=== PATIENT | male | born 1945 | race Caucasian/White ===

== ENCOUNTER 2017-03-26 09:47 | Emergency (ER) | payer MEDICARE, OTHER ==
[~2017-03-26] VITALS: Ht 185.4 cm; Wt 147.0 kg
[~2017-03-26 09:47] MED LIST: CARD180C5 PO; COUM10TA PO; COUM5TAB PO; COZA100T PO; FINA5TAB2 PO; GLIM4 PO; METF-324 PO; PACE200T4 PO; PRAV40TA PO
[2017-03-26 09:57] VITALS: BP 191/90; PULSE 60; RESP 20; TEMP 97.8; O2SAT 95
--- NOTE | 2017-03-26 11:47 | PD ---
HPI Chief Complaint: Pain: Acute or Chronic Time Seen by Provider: 11:47 Travel History International Travel<30 days: No Contact w/Intl Traveler<30days: No Traveled to known affect area: No History of Present Illness HPI 71-year-old male with history of hypertension, diabetes, A. fib anticoagulated on Coumadin presents to the emergency department for evaluation of pain radiating from left buttock down left leg. States this is been going on for 1 week. Denies any injury or trauma. States that he has had cramping in the left calf as well. States that he was seen by his primary care Dr. Jordan in office last week and they did an MRI as an outpatient which showed lumbar spine disc bulging. States he was given an IM injection in the office for pain and discharged with Lortab, prednisone and Valium. States he has been taking his medications without improvement of symptoms. States that he still has severe pain radiating from the left buttock down the left leg. Denies any alleviating factors. Aggravated with movement. Denies any fever, chills, nausea, vomiting, bowel or bladder dysfunction, saddle anesthesia. The patient and his are essentially here because they're concerned about his left calf pain and wanted make sure he does not have a blood clot and also because of his uncontrolled pain. No other complaints. PFSH Past Medical History Hx Anticoagulant Therapy: Yes (ON COUMADIN) Atrial Fibrillation: Yes (CORRECTED BY CARDOVERSON) Blood Disorders: No Heart Rhythm Problems: Yes (ATRIAL FIB) Cancer: Yes (SKIN CANCER ON L EAR) Cardiovascular Problems: Yes (IRREGULAR RYTHM) High Cholesterol: Yes Congestive Heart Failure: Yes Diabetes: Yes (IDDM) Patient Takes Glucophage: Yes Diminished Hearing: No Endocrine: Yes Gastrointestinal Disorders: No Genitourinary: Yes Hepatitis: No Hiatal Hernia: No Hypertension: Yes Immune Disorder: No Implanted Vascular Access Dvce: No Kidney Stones: Yes (1999) Medical other: Yes (BELLS PALSEY--LT SIDE OF FACE,BULDGING DISC NECK) Musculoskeletal: Yes Neurologic: Yes (BELLS PALSEY) Psychiatric: No Respiratory: No Thyroid Disease: No ?: Not Past Surgical History Abdominal Surgery: No Cardiac Surgery: Yes (CARDIOVERSION) Ear Surgery: No Endocrine Surgery: No Eye Surgery: No Genitourinary Surgery: No Gynecologic Surgery: No Neurologic Surgery: No Oral Surgery: Yes (T&A) Pacemaker: No Thoracic Surgery: No Tonsillectomy: Yes (5 AND ADS) Other Surgery: Yes Social History Alcohol Use: Yes (OCCAS. MIX DRINKS, BEER) Tobacco Use: No (QUIT 10/24/15) Substance Use: No Allergies-Medications (Allergen,Severity, Reaction): Coded Allergies: Atropine (Verified Allergy, Intermediate, 03/26/17) Uncoded Allergies: ANTIHISTAMINES (Allergy, Intermediate, 05/18/06) Reported Meds & Prescriptions Reported Meds & Active Scripts Active Percocet (Oxycodone-Acetaminophen) 10-325 mg Tab 1 Tab PO Q6H PRN Finasteride 5 Mg Tab 5 Mg PO DAILY Do not crush. Reported Finasteride 5 Mg Tab 5 Mg PO DAILY Do not crush. Glimepiride 4 Mg Tab 4 Mg PO BIDAC Valium (Diazepam) 5 Mg Tab 5 Mg PO BID PRN Valium (Diazepam) 5 Mg Tab 5 Mg PO BID PRN Hydrocodone-Acetaminophen 10-325 mg Tab 1 Tab PO Q4H PRN Pravastatin 40 Mg Tab 40 Mg PO DAILY Warfarin 10 Mg Tab 10 Mg PO DAILY Metformin (Metformin HCl) 1,000 Mg Tab 1,000 Mg PO BIDPC With meals Potassium Citrate ER 15 Meq Tab 10 Meq TID Amiodarone (Amiodarone HCl) 200 Mg Tab 200 Mg PO DAILY Cartia Xt (Diltiazem ER 24 HR) 120 Mg Caper 180 Mg PO DAILY Review of Systems Except as stated in HPI: all other systems reviewed are Neg Physical Exam Narrative GENERAL: Well-nourished and well-developed pleasant male patient in no acute distress but moderate amount of pain. SKIN: Warm and dry. HEAD: Normocephalic and atraumatic. EYES: No injection, drainage, or hyphema noted. PERRLA. EOMI. ENT: No nasal drainage noted. Oropharynx is clear. NECK: Supple and the trachea is midline. CARDIOVASCULAR: Regular rate and rhythm. RESPIRATORY: Breath sounds are equal bilaterally with no accessory muscle use, wheezing, rhonchi, or crackles. GASTROINTESTINAL: Abdomen is soft, non-tender, and nondistended. MUSCULOSKELETAL: No obvious deformities, swelling, cyanosis, or ecchymosis is present throughout the upper and lower extremities. Patient has full range of motion without any signs of neurovascular compromise. Mild tenderness to palpation over left buttock, left hamstring and posterior aspect of left knee. Strength 5/5 upper and lower extremities and equal bilaterally. The pulses are 2+ bilaterally. Sensation is intact. BACK: Nontender without any obvious deformities, bony point tenderness, or crepitus noted throughout the thoracic and lumbar vertebrae. NEUROLOGICAL: Awake, alert, and oriented. Normal speech and gait. Cranial nerves are grossly intact. Data Data Last Documented VS Vital Signs Date Time Temp Pulse Resp B/P Pulse Ox O2 Delivery O2 Flow Rate FiO2 03/26/17 13:24 52 18 157/79 95 Room Air 03/26/17 09:57 97.8 Orders Basic Metabolic Panel (Bmp) (03/26/17 11:46) Complete Blood Count With Diff (03/26/17 11:46) Prothrombin Time / Inr (Pt) (03/26/17 11:46) Act Partial Throm Time (Ptt) (03/26/17 11:46) Iv Access Insert/Monitor (03/26/17 11:46) Ecg Monitoring (03/26/17 11:46) Oximetry (03/26/17 11:46) Ondansetron Inj (Zofran Inj) (03/26/17 12:00) Sodium Chloride 0.9% Flush (Ns Flush) (03/26/17 12:00) Hydromorphone Pf Inj (Dilaudid Pf Inj) (03/26/17 12:00) Us Leg Venous Doppler (03/26/17 ) Labs Laboratory Tests Test 03/26/17 12:45 White Blood Count 16.1 TH/MM3 Red Blood Count 5.09 MIL/MM3 Hemoglobin 14.7 GM/DL Hematocrit 45.4 % Mean Corpuscular Volume 89.2 FL Mean Corpuscular Hemoglobin 28.8 PG Mean Corpuscular Hemoglobin 32.3 % Concent Red Cell Distribution Width 14.9 % Platelet Count 315 TH/MM3 Mean Platelet Volume 9.3 FL Neutrophils (%) (Auto) 76.5 % Lymphocytes (%) (Auto) 16.2 % Monocytes (%) (Auto) 6.3 % Eosinophils (%) (Auto) 0.4 % Basophils (%) (Auto) 0.6 % Neutrophils # (Auto) 12.3 TH/MM3 Lymphocytes # (Auto) 2.6 TH/MM3 Monocytes # (Auto) 1.0 TH/MM3 Eosinophils # (Auto) 0.1 TH/MM3 Basophils # (Auto) 0.1 TH/MM3 CBC Comment AUTO DIFF Differential Total Cells 100 Counted Neutrophils % (Manual) 75 % Lymphocytes % 15 % Monocytes % 6 % Eosinophils % 1 % Neutrophils # (Manual) 12.6 TH/MM3 Metamyelocytes 1 % Myelocytes 1 % Promyelocytes 1 % Differential Comment FINAL DIFF MANUAL Toxic Vacuolation PRESENT Platelet Estimate NORMAL Platelet Morphology Comment NORMAL Prothrombin Time 39.0 SEC Prothromb Time International 3.3 RATIO Ratio Activated Partial 38.7 SEC Thromboplast Time Sodium Level 137 MEQ/L Potassium Level 4.7 MEQ/L Chloride Level 100 MEQ/L Carbon Dioxide Level 27.5 MEQ/L Anion Gap 10 MEQ/L Blood Urea Nitrogen 19 MG/DL Creatinine 0.93 MG/DL Estimat Glomerular Filtration 80 ML/MIN Rate Random Glucose 185 MG/DL Calcium Level 8.8 MG/DL MDM Medical Decision Making Medical Screen Exam Complete: Yes Emergency Medical Condition: Yes Differential Diagnosis Sciatica versus lumbar radiculopathy versus DVT versus intractable pain Narrative Course 71-year-old male is brought to the emergency department for evaluation of pain radiating from left buttock down left leg. Patient is afebrile, vital signs are stable. His symptoms are consistent with sciatica however the patient and his are concerned about possibility of DVT as he said cramping in the left calf. We'll do an ultrasound. We'll also do blood work and check his INR. Patient is administered Dilaudid 1 mg IV and Zofran 4 mg IV. He had an MRI done at [facility] 6 days ago which showed mild almost moderate stenosis at the L4-5 level secondary to diffuse annular bulge and posterior element hypertrophy. The lateral recesses are clearly impaired. There is a broad-based bulge and slight inferior extrusion of disc material on the left side which abuts but does not displace the left L5 nerve root. The patient and his state that he was referred to a neurosurgeon however the nurse surgeon wants him to undergo physical therapy and pain management before he will evaluate him and his appointment is not for another month. CBC shows leukocytosis with a white count of 16.1, likely secondary to steroids. BMP is unremarkable. INR is 3.3, therapeutic. Ultrasound of the left leg is negative for DVT. She was reassessed after receiving 1 dose of Dilaudid and reports his pain has resolved. Discussed all labs and imaging results with patient and his . We 'll try a course of Percocet rather than Lortab for pain control. Patient advised outpatient follow-up with PCP and pain management. Patient and family are comfortable with this plan. Diagnosis Primary Impression: Sciatica of left side Referrals: Primary Care Physician Patient Instructions: General Instructions, Sciatica (ED) Additional Instructions: Do not take Percocet and Lortab simultaneously. Try taking Percocet over the next few days instead of the Lortab for pain control. Do not drink alcohol or drive while taking medications. Be careful taking Percocet with other medications such as Valium as it will make you very drowsy and at risk for losing balance and falling. Follow-up with your Primary Care Physician. Return to the ED for any acute worsening of symptoms. Med/Other Pt SpecificInfo: Prescription(s) given Scripts Oxycodone-Acetaminophen (Percocet)10-325 mg Tab1 Tab PO Q6H PRN (PAIN GREATER THAN 6) #20 TAB Ref 0 Prov:Jeevan Roberson MD 03/26/17 Disposition: 01 DISCHARGE HOME Condition: Stable Madeline Nichole Mar 26, 2017 11:47
[2017-03-26] MEDS ORDERED: HYDROmorphone HCL PF 1 MG/ML VIAL IVS ONE (12:00)
[2017-03-26] MEDS ORDERED: SODIUM CHLORIDE 0.9% FLUSH 10 ML FLUSH IV FLUSH PRN (12:00)
[2017-03-26] MEDS ORDERED: ONDANSETRON HCL 4 MG/2 ML VIAL IVP ONE (12:00)
[2017-03-26] MEDS ORDERED: METF1000 PO (12:09)
[2017-03-26] MEDS ORDERED: CART120C PO (12:09)
[2017-03-26] MEDS ORDERED: AMIO200T PO (12:09)
[2017-03-26] MEDS ORDERED: DIAZ5 PO ×2 (12:09→12:10)
[2017-03-26] MEDS ORDERED: HYDR-3583 PO (12:09)
[2017-03-26] MEDS ORDERED: PRAV40TA2 PO (12:09)
[2017-03-26] MEDS ORDERED: POTA4.25 (12:09)
[2017-03-26] MEDS ORDERED: WARF-22 PO (12:09)
[2017-03-26] MEDS ORDERED: FINA5TAB2 PO (12:10)
[2017-03-26] MEDS ORDERED: GLIM4TAB PO (12:10)
[2017-03-26 12:54] LABS: AUTOMATED NEUTROPHIL # 12.3 TH/MM3 (1.8-7.7); BASOPHIL # 0.1 TH/MM3 (0-0.2); BASOPHIL % 0.6 % (0.0-2.0); EOSINOPHIL # 0.1 TH/MM3 (0-0.4); EOSINOPHIL % 0.4 % (0.0-4.0); HEMATOCRIT 45.4 % (39.0-51.0); LYMPH % 16.2 % (9.0-44.0); LYMPHOCYTE # 2.6 TH/MM3 (1.0-4.8); MEAN CELL VOLUME 89.2 FL (80.0-100.0); MEAN CORPUSCULAR HEMOGLOBIN 28.8 PG (27.0-34.0); MEAN CORPUSCULAR HGB CONC 32.3 % (32.0-36.0); MONO % 6.3 % (0.0-8.0); NEUT % 76.5 % (16.0-70.0); PLATELET COUNT 315 TH/MM3 (150-450); RED BLOOD COUNT 5.09 MIL/MM3 (4.50-5.90); RED CELL DISTRIBUTION WIDTH 14.9 % (11.6-17.2); WHITE BLOOD COUNT 16.1 TH/MM3 (4.0-11.0)
[2017-03-26 13:00] LABS: HEMO FLAGS AUTO DIFF
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
[2017-03-26 13:08] LABS: APTT (PATIENT) 38.7 SEC (24.3-30.1); INTERNATIONAL NORMALIZED RATIO 3.3 RATIO
[2017-03-26 13:24] VITALS: BP 157/79; PULSE 52; RESP 18; O2SAT 95
[2017-03-26 13:35] LABS: EOSINOPHILS 1 % (0-4); METAMYELOCYTES 1 % (0-1); MYELOCYTES 1 % (0-0); NEUTROPHIL # MANUAL DIFF 12.6 TH/MM3 (1.8-7.7); POLYS (SEG NEUTROPHILS) 75 % (16-70); PROMYELOCYTES 1 % (0-0); WBC DIFF SAMPLE 100
[2017-03-26 13:36] LABS: PLATELET ESTIMATE SMEAR NORMAL (NORMAL); PLATELET MORPHOLOGY NORMAL (NORMAL); SCAN/DIFF FINAL DIFF MANUAL
[2017-03-26 13:37] LABS: TOXIC VACUOLATION PRESENT (NONE SEEN)
[2017-03-26] MEDS ORDERED: PERC10TA27 PO (13:37)
[2017-03-26 13:49] LABS: BICARBONATE 27.5 MEQ/L (21.0-32.0); POTASSIUM 4.7 MEQ/L (3.5-5.1)
== END 2017-03-26 14:30 | disposition home or self-care (01) ==
LOC: NEPD 09:47
DX: M54.32 Sciatica, left side (principal); D72.829 Elevated white blood cell count, unspecified; I10 Essential (primary) hypertension; E11.9 Type 2 diabetes mellitus without complications; I48.91 Unspecified atrial fibrillation; I50.9 Heart failure, unspecified; Z79.899 Other long term (current) drug therapy; Z79.01 Long term (current) use of anticoagulants; Z88.8 Allergy status to other drugs, medicaments and biological substances
CPT/HCPCS: 80048; 85007; 85027; 85610; 85730; 93971; 96374; 96375; 99285; J1170; J2405

== ENCOUNTER 2017-05-25 12:42 | Emergency (ER) | payer MEDICARE ==
[~2017-05-25] VITALS: Ht 185.4 cm; Wt 138.0 kg
[~2017-05-25 12:42] MED LIST changes: +AMIO200T PO; -CARD180C5 PO; +CART120C PO; -COUM10TA PO; -COUM5TAB PO; -COZA100T PO; +DIAZ5 PO; -GLIM4 PO; +GLIM4TAB PO; +HYDR-3583 PO; -METF-324 PO; +METF1000 PO; -PACE200T4 PO; +PERC10TA27 PO; +POTA4.25 PO; -PRAV40TA PO; +PRAV40TA2 PO; +WARF-22 PO
[2017-05-25 14:21] VITALS: BP 179/85; PULSE 64; RESP 20; TEMP 97.5; O2SAT 93
[2017-05-25 16:55] VITALS: BP 173/81; PULSE 61; RESP 18; TEMP 97.6; O2SAT 96
[2017-05-25 17:29] VITALS: BP 173/66; PULSE 64; RESP 20; O2SAT 97
[2017-05-25] MEDS ORDERED: LOSA100T PO (17:29)
[2017-05-25] MEDS ORDERED: WARF-21 PO (17:29)
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
[2017-05-25] MEDS ORDERED: DEXAMETHASONE SOD PHOS 20 MG/5 ML VIAL IM ONE (17:45)
[2017-05-25] MEDS ORDERED: HYDROmorphone HCL PF 1 MG/ML VIAL IM ONE ×2 (17:45→18:30)
[2017-05-25] MEDS ORDERED: HYDROmorphone HCL PF 1 MG/ML VIAL IV PUSH ONE (18:15)
[2017-05-25 18:21] VITALS: BP 152/59; PULSE 57; RESP 20; O2SAT 98
[2017-05-25] MEDS ORDERED: PRED50 PO (18:40)
[2017-05-25 18:57] VITALS: BP 142/61
--- NOTE | 2017-05-26 14:04 | EKG ---
Date Performed: 05/25/2017 Time Performed: 13:00:59 PTAGE: 71 years EKG: Sinus rhythm NORMAL ECG Compared to prior tracing no significant change PREVIOUS TRACING : 07/18/13 DOCTOR: Faby Wood Interpretating Date/Time 05/26/2017 13:58:23
[2017-05-28] MEDS ORDERED: DIAZ5TAB PO (14:31)
[2017-05-28] MEDS ORDERED: METF500T PO (14:31)
[2017-05-28] MEDS ORDERED: WARF-23 PO (14:31)
[2017-05-28] MEDS ORDERED: OXYC1TAB36 PO (14:31)
[2017-05-28] MEDS ORDERED: INSU1INJ14 SQ (14:31)
[2017-05-28] MEDS ORDERED: HYDR-3583 PO (14:31)
[2017-05-28] MEDS ORDERED: ALBI1INJ SQ (14:32)
[2017-06-01] MEDS ORDERED: WARF-60 PO (16:46)
== END 2017-05-25 19:00 | disposition home or self-care (01) ==
LOC: PHED 12:42
DX: M54.42 Lumbago with sciatica, left side (principal); I10 Essential (primary) hypertension; I48.91 Unspecified atrial fibrillation; Z79.01 Long term (current) use of anticoagulants
CPT/HCPCS: 93005; 96372; 99284; J1100; J1170

== ENCOUNTER → 2017-06-01 | Outpatient (CLI) | payer MEDICARE ==
[~2017-06-01] MED LIST changes: +ALBI1INJ SQ; -DIAZ5 PO; +DIAZ5TAB PO; +INSU1INJ14 SQ; +LOSA100T PO; -METF1000 PO; +METF500T PO; +OXYC1TAB36 PO; -PERC10TA27 PO; -WARF-22 PO; +WARF-23 PO; +WARF-60 PO
== END ==
LOC: CPRE 11:56
PROVIDERS: ATTEND Neurological Surgery
DX: M51.26 Other intervertebral disc displacement, lumbar region (principal); M48.06 Spinal stenosis, lumbar region; M51.35 Other intervertebral disc degeneration, thoracolumbar region

== ENCOUNTER 2017-06-09 05:58 | Observation (INO) | payer MEDICARE ==
[~2017-06-09] VITALS: Ht 185.4 cm; Wt 133.7 kg
[~2017-06-09 05:58] MED LIST changes: -DIAZ5TAB PO
[2017-06-09] MEDS ORDERED: POVIDONE IODINE 5% (ANTISEPSIS KIT) 4 APPLICATIONS EACH NARE PRN (06:45)
[2017-06-09] MEDS ORDERED: METOPROLOL TARTRATE 25 MG TAB PO PRN (06:45)
[2017-06-09] MEDS ORDERED: SODIUM CHLOR 0.9% 1000 ML INJ 1,000 ML IV SCH (06:45)
[2017-06-09] MEDS ORDERED: VANCOMYCIN 1,000 MG/NS 250 ML IV SCH ×2 (06:45)
[2017-06-09] MEDS ORDERED: LACTATED RINGER'S 1000 ML IV PRN (06:45)
[2017-06-09] MEDS ORDERED: SODIUM CHLORID 0.9% 500 ML IV PRN (06:45)
[2017-06-09] MEDS ORDERED: CHLORHEXIDINE GLUCONATE 2 % 1 PACK (2 CLOTHS) TOPICAL PRN (06:45)
[2017-06-09] MEDS ORDERED: BUPIVACAINE/EPINEPHRINE 0.5% 50 ML VIAL ONE (06:49)
[2017-06-09] MEDS ORDERED: THROMBIN (TOPICAL) 5,000 UNIT VIAL ONE (06:49)
[2017-06-09] MEDS ORDERED: VANCOMYCIN HCL 1000 MG VIAL ONE (06:49)
[2017-06-09] MEDS ORDERED: GELFOAM SIZE 100 ONE (06:50)
[2017-06-09] MEDS ORDERED: DEXTROSE 50% IN WATER 50 ML SYRINGE ONE ×2 (07:12→11:38)
[2017-06-09] MEDS ORDERED: DEXTROSE 50% IN WATER 50 ML VIAL(D50) ONE (07:12)
[2017-06-09] MEDS ORDERED: DEXTROSE 50% IN WATER 50 ML VIAL(D50) IV ONE (07:45)
[2017-06-09] MEDS ORDERED: methylPREDNISolone ACETATE 40 MG/ML VIAL ONE (09:32)
[2017-06-09] MEDS ORDERED: DO NOT ADM ANY ANTICOAGULANT DRUGS PRN (10:56)
[2017-06-09] MEDS: LACTATED RINGER'S 1000 ML INJ 1,000 ML IV SCH (11:00)
[2017-06-09] MEDS ORDERED: OXYC1TAB36 PO (11:10)
--- NOTE | 2017-06-09 11:11 | RADRPT ---
EXAM DATE/TIME: 06/09/2017 08:52 [facility] COMPARISON: No previous studies available for comparison. INDICATIONS : L4-L5 lumbar laminectomy. MEDICAL HISTORY : None. SURGICAL HISTORY : None. ENCOUNTER: Initial ACUITY: 1 day PAIN SCORE: Non-responsive. LOCATION: Lumbar spine. FINDINGS: Single lateral view of the lumbosacral junction demonstrates localization hardware projecting posteri or to L4 and L5 posterior elements. CONCLUSION: Localization as above. Oleg Pa MD on June 09, 2017 at 11:09 Board Certified Radiologist. This report was verified electronically.
--- NOTE | 2017-06-09 11:12 | PD.OP ---
cc: Roosevlet Jordan MD, Vinod, MD Operative Report Date of Surgery: Jun 09, 2017 Preoperative Diagnosis: Low back pain with intractable radiculopathy; lumbar L4-5 spinal stenosis from facet and ligamentum flavum hypertrophy along with herniated disc; postlaminectomy syndrome; morbid obesity Postoperative Diagnosis: Same Procedure: Lumbar L4-5 decompressive laminectomy with microdiscectomy; microsurgical technique; technically challenging surgery due to patient's morbid obesity and epidural scar tissue from previous surgery Anesthesia: Gen. endotracheal by Arron Grewal Surgeon: Kayode Bonner M.D. Bar Hostess(s): Julissa Kapadia Operation and Findings: Following administration of general endotracheal anesthesia, patient received vancomycin 1 g intravenously. Sequential compression devices were placed for DVT prophylaxis. He was then turned in prone position on Rikki frame and the Wagner table and all pressure points adequately padded. The lumbar region was then shaved and prepped with a Betadine and ChloraPrep. Sterile draping undertaken with Ioban. Midline incision overlying the L4-5 level incorporating the superior aspect of the previous incision site was then made after infiltrating the skin with 0.5% Marcaine with epinephrine solution. The skin incision was made extending down through the fascia and then using the subperiosteal plane on the left side the muscular attachments to the spinous process and lamina were detached. Intraoperative fluoroscopy was used for level confirmation and further dissection undertaken using microtechnique with microscope magnification. This was a very deep exposure given the patient's morbid obesity and somewhat challenging given the obesity and previous laminectomy and scar tissue. The inferior portion of the L4 and portion of the residual L5 lamina was then drilled out and the underlying ligamentum flavum also removed. There was facet arthropathy noted and the medial portion of facet was also resected and the lateral recess decompressed. There was epidural scar tissue from the previous surgery. Epidural venous stasis which he with the bipolar cautery along with Gelfoam and thrombin and bone wax used at the laminotomy edges for hemostasis. The thecal sac was then gently retracted with a nerve root retractor and an extruded disc fragment was identified which was inferiorly migrated. Fragments were removed with pituitary forceps and the nerve root impingement along with thecal sac compression decompressed. The spinal canal was well decompressed at this point. The area was then copiously irrigated with vancomycin solution. The retractors removed and the muscle fascia proximal using 2-0 Vicryl interrupted stitches. 3-0 Vicryl subcuticular stitches were also placed in an interrupted fashion and planned skin closure was with radhika. A sterile dressing was then applied and the patient then turned in the supine position and extubated and taken to recovery room in stable condition. There were no intraoperative complications and all sponge and needle count was correct at the end of the procedure. Estimated blood loss less than 50 cc. Kayode Bonner MD Jun 09, 2017 11:12
[2017-06-09] MEDS ORDERED: *morphine SULFATE 8 MG/ML PERIprocedure ONLY ONE ×3 (11:16→11:47)
[2017-06-09] MEDS ORDERED: LIDOCAINE HCL 1% PF 5 ML AMPULE OTHER ONE (12:00)
[2017-06-09] MEDS ORDERED: NEOSTIGMINE 3 MG/3 ML SYR IV ONE (12:00)
[2017-06-09] MEDS ORDERED: PROPOFOL 200 MG/20 ML AMP IV ONE (12:00)
[2017-06-09] MEDS ORDERED: ROCURONIUM INJ 50 MG/5 ML SYRINGE IV PUSH ONE (12:00)
[2017-06-09] MEDS ORDERED: GLYCOPYRROLATE 1 MG/5 ML SYRINGE IV PUSH ONE (12:00)
[2017-06-09] MEDS ORDERED: ePHEDrine/NS 25 MG/5 ML SYR IV ONE (12:00)
[2017-06-09] MEDS ORDERED: DEXAMETHASONE SOD PHOS 4 MG/ML VIAL IV ONE (12:00)
[2017-06-09] MEDS ORDERED: MIDAZOLAM HCL 2 MG/2 ML VIAL IV ONE (12:00)
[2017-06-09] MEDS ORDERED: ONDANSETRON HCL 4 MG/2 ML VIAL IV PUSH ONE (12:00)
[2017-06-09] MEDS ORDERED: PHENYLEPH/NS 1000 MCG/10 ML SYR IV ONE (12:00)
[2017-06-09] MEDS ORDERED: MORPHINE SULFATE 4 MG/ML INJ IV ONE (12:00)
[2017-06-09] MEDS ORDERED: DEXTROSE 50% IN WATER 50 ML SYRINGE IV ONE ×2 (13:00→13:15)
[2017-06-09] MEDS ORDERED: *RESP: ALBUTEROL 2.5 MG/3 ML NEB (PRN) PERIprocedural Use ONLY NEB ONE (13:05)
[2017-06-09] MEDS ORDERED: ONDANSETRON HCL 4 MG/2 ML VIAL ONE (14:07)
[2017-06-09] MEDS ORDERED: ACETAMINOPHEN/HYDROcodone 325 MG/10 MG TAB PO PRN ×2 (14:45)
[2017-06-09] MEDS ORDERED: MORPHINE SULFATE 4 MG/ML INJ IV PUSH PRN (14:45)
[2017-06-09] MEDS ORDERED: ACETAMINOPHEN 325 MG TAB PO PRN (14:45)
[2017-06-09] MEDS ORDERED: ONDANSETRON HCL 4 MG/2 ML VIAL IV PUSH PRN (14:45)
[2017-06-09] MEDS ORDERED: cloNIDine HCL 0.1 MG TAB PO PRN ×2 (14:45→20:30)
[2017-06-09] MEDS ORDERED: PROMETHAZINE INJ 25 MG/ML VIAL IM PRN (14:45)
[2017-06-09] MEDS ORDERED: RESP: ALBUTEROL 2.5 MG/3 ML NEB (PRN) NEB (14:45)
[2017-06-09] MEDS ORDERED: ALUMINUM/MAGNESIUM/SIMETH 30 ML CUP PO PRN (14:45)
[2017-06-09] MEDS ORDERED: DEXTROSE 50% IN WATER 50 ML VIAL(D50) IV PUSH PRN (14:45)
[2017-06-09] MEDS ORDERED: MAGNESIUM SULFATE INJ 2 GM in SODIUM CHLORIDE 0.9% INJ 100 ML IV PRN (14:45)
[2017-06-09] MEDS ORDERED: SODIUM CHLORIDE 0.9% FLUSH 10 ML FLUSH IV FLUSH PRN (14:45)
[2017-06-09] MEDS ORDERED: POTASSIUM CHLOR 20 MEQ PREMIX 100 ML IV PRN (14:45)
[2017-06-09] MEDS ORDERED: CALCIUM GLUCONATE INJ 1 GM in SODIUM CHLORIDE 0.9% INJ 100 ML IV PRN (14:45)
[2017-06-09] MEDS ORDERED: MENTHOL LOZENGE BUCCAL PRN (14:45)
[2017-06-09] MEDS ORDERED: GLUCAGON 1 MG/ML VIAL OTHER PRN (14:45)
[2017-06-09] MEDS ORDERED: CYCLOBENZAPRINE HCL 10 MG TAB PO PRN (14:45)
[2017-06-09] MEDS ORDERED: MAGNESIUM HYDROXIDE SUSP 30 ML CUP PO PRN (14:45)
--- NOTE | 2017-06-09 15:26 | RADRPT ---
EXAM DATE/TIME: 06/09/2017 15:06 [facility] COMPARISON: SPINE LUMBAR LATERAL ONLY, June 09, 2017, 8:52. INDICATIONS : Dyspnea. MEDICAL HISTORY : Congestive heart failure. Hypercholesterolemia. Ruptured disc in neck. [place] SURGICAL HISTORY : Tonsillectomy. Adnoidecotomy. ENCOUNTER: Initial ACUITY: 1 day PAIN SCORE: Non-responsive. LOCATION: Bilateral chest FINDINGS: The heart is enlarged. The lungs demonstrate some chronic appearing interstitial changes but are othe rwise clear. The visualized bony structures are grossly intact. CONCLUSION: 1. Cardiomegaly. No acute cardiopulmonary findings. Efren Rios MD on June 09, 2017 at 15:20 Board Certified Radiologist. This report was verified electronically.
[2017-06-09 16:52] VITALS: BP 169/80; PULSE 57; RESP 18; TEMP 97.5; O2SAT 98
[2017-06-09] MEDS: INSULIN NovoLIN REGULAR SUPPLEMENTAL SCALE SQ SCH ×2 (17:00→22:56)
[2017-06-09 17:10] LABS: AUTOMATED NEUTROPHIL # 17.2 TH/MM3 (1.8-7.7); BASOPHIL % 0.1 % (0.0-2.0); HEMATOCRIT 38.3 % (39.0-51.0); HEMO FLAGS DIFF FINAL; LYMPH % 3.7 % (9.0-44.0); LYMPHOCYTE # 0.7 TH/MM3 (1.0-4.8); MEAN CELL VOLUME 91.6 FL (80.0-100.0); MEAN CORPUSCULAR HEMOGLOBIN 30.2 PG (27.0-34.0); MEAN CORPUSCULAR HGB CONC 32.9 % (32.0-36.0); MONO % 1.4 % (0.0-8.0); NEUT % 94.8 % (16.0-70.0); PLATELET COUNT 281 TH/MM3 (150-450); RED BLOOD COUNT 4.18 MIL/MM3 (4.50-5.90); RED CELL DISTRIBUTION WIDTH 14.4 % (11.6-17.2); WHITE BLOOD COUNT 18.2 TH/MM3 (4.0-11.0)
--- NOTE | 2017-06-09 17:16 | HHI.NSPN ---
History Interval History 71-year-old gentleman morbidly obese with the medical comorbidities who underwent L4-5 decompressive laminectomy with microdiscectomy this morning. He is doing well from that standpoint although noticed the saturation on room air and with the 2 L nasal cannula nasal reduction aiding in his mid 90s. He denies any dyspnea or chest pain although it is little lethargic from the anesthetics. Exam Results Vital Signs Date Time Temp Pulse Resp B/P (MAP) Pulse Ox O2 Delivery O2 Flow Rate FiO2 06/09/17 16:52 97.5 57 18 169/80 (109) 98 06/09/17 15:30 Nasal Cannula 3 Intake and Output 06/09/17 06/09/17 06/10/17 08:00 16:00 00:00 Intake Total 1475 ml Output Total 50 ml Balance 1425 ml Physical Examination Easily arousable and follows commands and verbalizes Moves all extremities Lumbar incision site clean and dry with no drainage Chest clear to auscultation bilaterally Heart regular rate and rhythm Lab, Micro, Other Results Last Impressions Lumbar Spine X-Ray 06/09/17 0000 Signed Impressions: Service Date/Time: Friday, June 09, 2017 08:52 - CONCLUSION: Localization as above. Oleg Pa MD Chest X-Ray 06/09/17 0000 Signed Impressions: Service Date/Time: Friday, June 09, 2017 15:06 - CONCLUSION: 1. Cardiomegaly. No acute cardiopulmonary findings. Efren Rios MD Laboratory Tests Test 06/09/17 16:38 White Blood Count 18.2 Red Blood Count 4.18 Hemoglobin 12.6 Hematocrit 38.3 Mean Corpuscular Volume 91.6 Mean Corpuscular Hemoglobin 30.2 Mean Corpuscular Hemoglobin Concent 32.9 Red Cell Distribution Width 14.4 Platelet Count 281 Mean Platelet Volume 8.4 Neutrophils (%) (Auto) 94.8 Lymphocytes (%) (Auto) 3.7 Monocytes (%) (Auto) 1.4 Eosinophils (%) (Auto) 0.0 Basophils (%) (Auto) 0.1 Neutrophils # (Auto) 17.2 Lymphocytes # (Auto) 0.7 Monocytes # (Auto) 0.3 Eosinophils # (Auto) 0.0 Basophils # (Auto) 0.0 CBC Comment DIFF FINAL Differential Comment Medical Decision Making Impression and Plan 71-year-old status post L4-5 laminectomy with microsurgical discectomy for stenosis and intractable back pain with radiculopathy. Chest x-ray is clear and with 3 L nasal cannula oxygen his saturations are normal. Accordingly we will admit him for observation and wean his oxygenation as tolerated. He will placed on insulin sliding scale coverage given that he had hyperglycemia which required rescheduling surgery. We'll also consult the medical team for assistance in his medical management. Discussed with his . Kayode Bonner MD Jun 09, 2017 17:16
[2017-06-09 17:31] LABS: BICARBONATE 24.7 MEQ/L (21.0-32.0); POTASSIUM 4.5 MEQ/L (3.5-5.1)
[2017-06-09 20:00] VITALS: BP 161/56; PULSE 67; RESP 20; TEMP 97.6; O2SAT 98
[2017-06-09] MEDS ORDERED: RESP: ALBUTEROL 2.5 MG/IPRATROPIUM 0.5 MG NEB (PRN) NEB (20:30)
--- NOTE | 2017-06-09 20:36 | PD.CONS ---
History of Present Illness Service [facility] adult medicine service Consult Requested By Dr. Mis Bonner Reason for Consult Medical management and reported postop hypoxia Primary Care Physician Roosevelt Jordan MD Diagnoses: History of Present Illness We have been asked to see this 71-year-old obese male with hypertension and diabetes who underwent L4-5 laminectomy with microdiscectomy earlier today for some reported postop hypoxia and management of multiple medical problems. Patient has remained relatively stable but was noted earlier today after surgery that his O2 saturation on room air was in the low 90s. He is now on 2-1 /2 L of supplemental oxygen via nasal cannula and sat is 99-100%. Patient denies any chest pain or shortness of breath. He does note that he is still quite fatigued after his surgery and only got about 4 hours of sleep last night in anticipation of surgery. He says that he had a dry cough a few days prior to the surgery but specifically denied any phlegm or sputum production. Denied any hemoptysis. No fevers or chills. No increased swelling in his legs or orthopnea. She states now it actually feels better than when he came in his pain in his back is less. Again denies shortness of breath. Review of Systems Constitutional: COMPLAINS OF: Fatigue Eyes: DENIES: Blurred vision, Diplopia, Eye inflammation, Eye pain, Vision loss , Photosensitivity, Double Vision Ears, nose, mouth, throat: DENIES: Tinnitus, Hearing loss, Vertigo, Nasal discharge, Oral lesions, Throat pain, Hoarseness, Ear Pain, Running Nose, Epistaxis, Sinus Pain, Toothache, Odynophagia Respiratory: COMPLAINS OF: Cough, DENIES: Apneas, Snoring, Wheezing, Hemoptysis , Sputum production, Shortness of breath Cardiovascular: DENIES: Chest pain, Palpitations, Syncope, Dyspnea on Exertion , PND, Lower Extremity Edema, Orthopnea, Claudication Gastrointestinal: DENIES: Abdominal pain, Black stools, Bloody stools, Constipation, Diarrhea, Nausea, Vomiting, Difficulty Swallowing, Anorexia Musculoskeletal: COMPLAINS OF: Joint pain, Back pain Hematologic/lymphatic: COMPLAINS OF: Bruising Psychiatric: COMPLAINS OF: Anxiety Past Family Social History Allergies: Coded Allergies: atropine (Unverified Allergy, Intermediate, 06/09/17) Uncoded Allergies: ANTIHISTAMINES (Allergy, Intermediate, 05/18/06) Past Medical History Hypertension Type 2 diabetes Osteoarthritis Degenerative disc disease Obesity Atrial fibrillation Hyperlipidemia Past Surgical History Tonsillectomy and adenoidectomy in the distant past Prior lumbar discectomy approximately 20 years ago Kidney stone retrieval and extraction Knee arthroscopy Reported Medications Med reconciliation list reviewed. Patient reports he is up-to-date. Family History Noncontributory Social History Patient never smoked cigarettes but did smoke occasional cigars in the past. He states that he did not smoke cigars regularly but possibly 1-2 cigars every 3 months. Not smoked at all in the last month. 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 Physical Exam Vital Signs Vital Signs Date Time Temp Pulse Resp B/P (MAP) Pulse Ox O2 Delivery O2 Flow Rate FiO2 06/09/17 20:00 97.6 67 20 161/56 (91) 98 06/09/17 16:52 97.5 57 18 169/80 (109) 98 06/09/17 15:30 97.5 56 10 135/63 (87) 94 Nasal Cannula 3 06/09/17 15:00 56 10 159/67 (97) 94 Nasal Cannula 3 06/09/17 14:30 56 10 144/65 (91) 94 Nasal Cannula 3 06/09/17 14:00 51 12 128/60 (82) 96 Nasal Cannula 3 06/09/17 13:30 55 16 137/65 (89) 84 Nasal Cannula 3 06/09/17 13:15 50 16 142/63 (89) 92 Room Air 06/09/17 13:00 53 17 110/66 (81) 97 Room Air 06/09/17 12:45 56 17 112/58 (76) 95 Room Air 06/09/17 12:30 51 11 133/65 (87) 86 Room Air 06/09/17 12:15 50 12 133/65 (87) 95 Room Air 06/09/17 12:00 53 12 132/60 (84) 96 Nasal Cannula 06/09/17 11:45 53 12 131/63 (85) 93 Nasal Cannula 06/09/17 11:30 56 12 131/62 (85) 95 Nasal Cannula 06/09/17 11:15 62 18 135/61 (85) 96 Nasal Cannula 2 06/09/17 11:00 61 14 137/63 (87) 93 Nasal Cannula 5 06/09/17 10:56 97.4 64 21 156/67 (96) 96 Nasal Cannula 5 06/09/17 06:45 97.8 62 20 142/79 (100) 96 Physical Exam GENERAL: This is a well-nourished, obese, well-developed patient, in no apparent distress. Pleasant and cooperative with exam. SKIN: Cool and dry. HEAD: Atraumatic. Normocephalic. No temporal or scalp tenderness. EYES: Pupils equal round and reactive. Extraocular motions intact. No scleral icterus. No injection or drainage. ENT: Nose without bleeding, purulent drainage or septal hematoma. Throat without erythema, tonsillar hypertrophy or exudate. Uvula midline. Airway patent. NECK: Trachea midline. No JVD or lymphadenopathy. Supple, nontender, no meningeal signs. CARDIOVASCULAR: Irregular rhythm without murmurs, gallops, or rubs. RESPIRATORY: Clear to auscultation. Breath sounds equal bilaterally. No wheezes , rales, or rhonchi. GASTROINTESTINAL: Abdomen soft, non-tender, slightly distended. No hepato- splenomegaly, or palpable masses. No guarding. MUSCULOSKELETAL: Extremities without clubbing, cyanosis, or edema. SCDs in place bilateral lower extremities. No calf tenderness. NEUROLOGICAL: Awake and alert. Cranial nerves II through XII intact. Motor and sensory grossly within normal limits. Five out of 5 muscle strength in all muscle groups. Normal speech. Laboratory Laboratory Tests Test 06/09/17 16:38 White Blood Count 18.2 Red Blood Count 4.18 Hemoglobin 12.6 Hematocrit 38.3 Mean Corpuscular Volume 91.6 Mean Corpuscular Hemoglobin 30.2 Mean Corpuscular Hemoglobin Concent 32.9 Red Cell Distribution Width 14.4 Platelet Count 281 Mean Platelet Volume 8.4 Neutrophils (%) (Auto) 94.8 Lymphocytes (%) (Auto) 3.7 Monocytes (%) (Auto) 1.4 Eosinophils (%) (Auto) 0.0 Basophils (%) (Auto) 0.1 Neutrophils # (Auto) 17.2 Lymphocytes # (Auto) 0.7 Monocytes # (Auto) 0.3 Eosinophils # (Auto) 0.0 Basophils # (Auto) 0.0 CBC Comment DIFF FINAL Differential Comment Blood Urea Nitrogen 14 Creatinine 0.81 Random Glucose 188 Calcium Level 8.2 Sodium Level 137 Potassium Level 4.5 Chloride Level 104 Carbon Dioxide Level 24.7 Anion Gap 8 Estimat Glomerular Filtration Rate 94 Result Diagram: 06/09/17 1638 06/09/17 1638 Imaging Last 72 hours Impressions Lumbar Spine X-Ray 06/09/17 0000 Signed Impressions: Service Date/Time: Friday, June 09, 2017 08:52 - CONCLUSION: Localization as above. Oleg Pa MD Chest X-Ray 06/09/17 0000 Signed Impressions: Service Date/Time: Friday, June 09, 2017 15:06 - CONCLUSION: 1. Cardiomegaly. No acute cardiopulmonary findings. Efren Rios MD Assessment and Plan Problem List: (1) Hypoxia ICD Codes: R09.02 - Hypoxemia Status: Acute Plan: Likely associated with anesthesia and some respiratory depression. Appears clinically stable and responded well to relatively low flow supplemental oxygen. Wean oxygen as tolerated. DuoNeb as needed. Pulmonary exam normal. (2) Lumbar degenerative disc disease ICD Codes: M51.36 - Other intervertebral disc degeneration, lumbar region Status: Chronic Plan: Status post L4-5 laminectomy with discectomy. Management per neurosurgery. Pain is well controlled according to patient. (3) Atrial fibrillation ICD Codes: I48.91 - Unspecified atrial fibrillation Status: Chronic Plan: Rate is well controlled. We'll need to resume anticoagulation within the next 36 hours if no obvious bleeding. (4) Hypertension ICD Codes: I10 - Essential (primary) hypertension Status: Chronic Plan: Continue home medications. Clonidine when necessary. (5) DM2 (diabetes mellitus, type 2) ICD Codes: E11.9 - Type 2 diabetes mellitus without complications Status: Chronic Plan: Sliding scale insulin. Oral hypoglycemic medications held at this point. (6) Hyperlipidemia ICD Codes: E78.5 - Hyperlipidemia, unspecified Status: Chronic Plan: Continue medication. (7) GERD (gastroesophageal reflux disease) ICD Codes: K21.9 - Gastro-esophageal reflux disease without esophagitis Status: Chronic Plan: Continue medication. Discussed Condition With Patient and his nurse. Discharge Planning Hopefully discharge tomorrow. Problem Qualifiers (1) Hypertension: Qualified Codes: I10 - Essential (primary) hypertension Law Shepard MD PhD Jun 09, 2017 20:35
[2017-06-09] MEDS: DOCUSATE SODIUM 100 MG CAP PO SCH (22:49)
[2017-06-09] MEDS: SODIUM CHLORIDE 0.9% FLUSH 10 ML FLUSH IV FLUSH SCH (22:58)
[2017-06-10] VITALS: BP 149/66; PULSE 66; RESP 20; TEMP 98.4; O2SAT 95
[2017-06-10 04:00] VITALS: BP 135/65; PULSE 63; RESP 20; TEMP 98.2; O2SAT 97
[2017-06-10 07:41] LABS: AUTOMATED NEUTROPHIL # 17.5 TH/MM3 (1.8-7.7); BASOPHIL % 0.1 % (0.0-2.0); HEMATOCRIT 38.5 % (39.0-51.0); HEMO FLAGS DIFF FINAL; LYMPH % 4.6 % (9.0-44.0); LYMPHOCYTE # 0.9 TH/MM3 (1.0-4.8); MEAN CELL VOLUME 91.2 FL (80.0-100.0); MEAN CORPUSCULAR HEMOGLOBIN 30.3 PG (27.0-34.0); MEAN CORPUSCULAR HGB CONC 33.2 % (32.0-36.0); MONO % 4.8 % (0.0-8.0); NEUT % 90.5 % (16.0-70.0); PLATELET COUNT 262 TH/MM3 (150-450); RED BLOOD COUNT 4.22 MIL/MM3 (4.50-5.90); RED CELL DISTRIBUTION WIDTH 14.5 % (11.6-17.2); WHITE BLOOD COUNT 19.4 TH/MM3 (4.0-11.0)
[2017-06-10 08:00] VITALS: BP 156/72; PULSE 64; RESP 18; TEMP 97.3; O2SAT 97
[2017-06-10] MEDS: INSULIN NovoLIN REGULAR SUPPLEMENTAL SCALE SQ SCH ×2 (08:00→12:00)
[2017-06-10] MEDS ORDERED: PRAVASTATIN SOD 40 MG TAB PO SCH (09:00)
[2017-06-10] MEDS ORDERED: PANTOPRAZOLE SOD 40 MG DELAYED RELEASE TAB PO SCH (09:00)
[2017-06-10] MEDS: SODIUM CHLORIDE 0.9% FLUSH 10 ML FLUSH IV FLUSH SCH (09:00)
[2017-06-10] MEDS ORDERED: DILTIAZEM-CD 120 MG CAP ER PO SCH (09:00)
[2017-06-10] MEDS ORDERED: DILTIAZEM-CD 180 MG CAP ER PO SCH (09:00)
[2017-06-10] MEDS ORDERED: [UNRECOGNIZED DRUG - OTHER] PO SCH (09:00)
[2017-06-10] MEDS ORDERED: FINASTERIDE 5 MG TAB PO SCH (09:00)
[2017-06-10] MEDS ORDERED: AMIODARONE 200 MG TAB PO SCH (09:00)
[2017-06-10] MEDS: DOCUSATE SODIUM 100 MG CAP PO SCH (09:00)
[2017-06-10] MEDS ORDERED: LOSARTAN 50 MG TAB PO SCH (09:00)
[2017-06-10] MEDS ORDERED: POTASSIUM CITRATE 10 MEQ PO SCH (09:00)
--- NOTE | 2017-06-10 09:45 | HHI.NSPN ---
History Chief Complaint: Mild incisional pain. No radiculopathy in LEs. Interval History Pt underwent a L4/L5 decompressive laminectomy with microdiscectomy on 06/09/17. He states the radicular pain has resolved. He has mild incisional discomfort. He has gotten out of bed and ambulated. Denies weakness in LEs. No chest pain or sob. Pt is off oxygen and doing well. Review of Systems General: Negative for: fever, chills, insomnia Respiratory: Negative for: shortness of breath, cough, sputum Cardiovascular: Negative for: chest pain Gastrointestinal: Negative for: nausea, vomitting, diarrhea, constipation Exam Results Vital Signs Date Time Temp Pulse Resp B/P (MAP) Pulse Ox O2 Delivery O2 Flow Rate FiO2 06/10/17 08:00 97.3 64 18 156/72 (100) 97 06/09/17 15:30 Nasal Cannula 3 Intake and Output 06/10/17 06/10/17 06/11/17 08:00 16:00 00:00 Intake Total 100 ml Output Total 2210 ml Balance -2110 ml Physical Examination Resp: CTA bilaterally Heart: NSR no murmurs Abd: Soft positive bs Skin: No cyanosis or erythema. RN changed bandage this morning Muscle: Moves LEs with good strength 5/5. Neuro: Pt awake and alert. Follows commands well. Speech clear and appropriate. Lab, Micro, Other Results Last Impressions Lumbar Spine X-Ray 06/09/17 0000 Signed Impressions: Service Date/Time: Friday, June 09, 2017 08:52 - CONCLUSION: Localization as above. Oleg Pa MD Chest X-Ray 06/09/17 0000 Signed Impressions: Service Date/Time: Friday, June 09, 2017 15:06 - CONCLUSION: 1. Cardiomegaly. No acute cardiopulmonary findings. Efren Rios MD Laboratory Tests Test 06/09/17 16:38 06/10/17 06:15 White Blood Count 18.2 TH/MM3 19.4 TH/MM3 Red Blood Count 4.18 MIL/MM3 4.22 MIL/MM3 Hemoglobin 12.6 GM/DL 12.8 GM/DL Hematocrit 38.3 % 38.5 % Mean Corpuscular Volume 91.6 FL 91.2 FL Mean Corpuscular Hemoglobin 30.2 PG 30.3 PG Mean Corpuscular Hemoglobin Concent 32.9 % 33.2 % Red Cell Distribution Width 14.4 % 14.5 % Platelet Count 281 TH/MM3 262 TH/MM3 Mean Platelet Volume 8.4 FL 8.9 FL Neutrophils (%) (Auto) 94.8 % 90.5 % Lymphocytes (%) (Auto) 3.7 % 4.6 % Monocytes (%) (Auto) 1.4 % 4.8 % Eosinophils (%) (Auto) 0.0 % 0.0 % Basophils (%) (Auto) 0.1 % 0.1 % Neutrophils # (Auto) 17.2 TH/MM3 17.5 TH/MM3 Lymphocytes # (Auto) 0.7 TH/MM3 0.9 TH/MM3 Monocytes # (Auto) 0.3 TH/MM3 0.9 TH/MM3 Eosinophils # (Auto) 0.0 TH/MM3 0.0 TH/MM3 Basophils # (Auto) 0.0 TH/MM3 0.0 TH/MM3 CBC Comment DIFF FINAL DIFF FINAL Differential Comment Blood Urea Nitrogen 14 MG/DL Creatinine 0.81 MG/DL Random Glucose 188 MG/DL Calcium Level 8.2 MG/DL Sodium Level 137 MEQ/L Potassium Level 4.5 MEQ/L Chloride Level 104 MEQ/L Carbon Dioxide Level 24.7 MEQ/L Anion Gap 8 MEQ/L Estimat Glomerular Filtration Rate 94 ML/MIN 06/10/17 06/10/17 06/11/17 15:00 23:00 07:00 Intake Total 100 ml Balance 100 ml IV Total 100 ml Medical Decision Making Impression and Plan A: 71 y/o M s/p lumbar L4/L5 decompressive laminectomy with microdiscectomy. P: Neurosurgically stable to discharge follow up in office for staple removal. discussed restrictions with pt. Discussed with Medical team pt is stable for discharge and follow up with pcp. Discussed with Dr. Bonner and pt and his cannot start Coumadin until at least 48 hours post op. He will start it tomorrow night. Horacio Sharma Jun 10, 2017 09:45
[2017-06-10 11:54] VITALS: BP 156/73; PULSE 71; RESP 20; TEMP 98.2; O2SAT 95
[2017-06-10] MEDS: LACTATED RINGER'S 1000 ML INJ 1,000 ML IV SCH (12:00)
[2017-06-10] MEDS: INSULIN HUMAN REGULAR 1,000 UNITS/10 ML VIAL SQ PRN ×4 (12:43→13:04)
== END 2017-06-10 15:09 | disposition home or self-care (01) ==
LOC: HSDC 05:58 → HSDI 14:37 → N05B 16:13
PROVIDERS: ADMIT Neurological Surgery; ATTEND Neurological Surgery
DX: M51.16 Intervertebral disc disorders with radiculopathy, lumbar region (principal); M48.06 Spinal stenosis, lumbar region; M96.1 Postlaminectomy syndrome, not elsewhere classified; E78.5 Hyperlipidemia, unspecified; E11.65 Type 2 diabetes mellitus with hyperglycemia; I10 Essential (primary) hypertension; I48.91 Unspecified atrial fibrillation; E66.01 Morbid (severe) obesity due to excess calories; Z68.38 Body mass index [BMI] 38.0-38.9, adult; Z79.84 Long term (current) use of oral hypoglycemic drugs
CPT/HCPCS: 00630; 63042; 71010; 72020; 76000; 80048; 82948; 85025; 94150; 94664; 96365; 96366; 96372; 96375; 97162; G0378; G8987; G8988; J0690; J1030; J1100; J1815; J2250; J2270; J2370; J2405; J2710; J3010; J3370; J7120; J7613

== ENCOUNTER 2017-08-22 09:24 | Emergency (ER) | payer MEDICARE ==
[~2017-08-22] VITALS: Ht 185.4 cm; Wt 148.0 kg
[~2017-08-22 09:24] MED LIST changes: -HYDR-3583 PO; -METF500T PO; -OXYC1TAB36 PO
[2017-08-22 09:51] VITALS: BP 186/85; PULSE 63; RESP 16; TEMP 97.3; O2SAT 94
[2017-08-22] MEDS ORDERED: METF500T PO (10:13)
[2017-08-22] MEDS ORDERED: POTA10TA2 PO (10:13)
[2017-08-22] MEDS ORDERED: CARD180C5 PO (10:13)
[2017-08-22] MEDS ORDERED: KETOROLAC TROMETHAMINE 60 MG/2 ML (IM) VIAL IM ONE (10:30)
[2017-08-22] MEDS ORDERED: ORPHENADRINE INJ 60 MG/2 ML AMP IM ONE (10:30)
[2017-08-22 10:52] LABS: AUTOMATED NEUTROPHIL # 12.7 TH/MM3 (1.8-7.7); BASOPHIL # 0.1 TH/MM3 (0-0.2); BASOPHIL % 0.5 % (0.0-2.0); EOSINOPHIL # 0.1 TH/MM3 (0-0.4); EOSINOPHIL % 0.9 % (0.0-4.0); HEMATOCRIT 41.2 % (39.0-51.0); LYMPH % 11.4 % (9.0-44.0); LYMPHOCYTE # 1.8 TH/MM3 (1.0-4.8); MEAN CELL VOLUME 90.3 FL (80.0-100.0); MEAN CORPUSCULAR HEMOGLOBIN 29.8 PG (27.0-34.0); NEUT % 81.2 % (16.0-70.0); PLATELET COUNT 281 TH/MM3 (150-450); RED BLOOD COUNT 4.56 MIL/MM3 (4.50-5.90); RED CELL DISTRIBUTION WIDTH 13.6 % (11.6-17.2); WHITE BLOOD COUNT 15.6 TH/MM3 (4.0-11.0)
[2017-08-22 10:56] LABS: HEMO FLAGS AUTO DIFF
[2017-08-22 11:01] LABS: CHLORIDE 107 MEQ/L (98-107); SODIUM (NA) 140 MEQ/L (136-145)
[2017-08-22 11:04] LABS: ANION GAP 10 MEQ/L (5-15); BICARBONATE 23.4 MEQ/L (21.0-32.0); BLOOD UREA NITROGEN 11 MG/DL (7-18)
[2017-08-22 11:08] LABS: GLOMERULAR FILTRATION RATE 97 ML/MIN (>89)
[2017-08-22 11:18] LABS: SCAN/DIFF AUTO DIFF CONFIRMED
--- NOTE | 2017-08-22 11:41 | PD ---
HPI Chief Complaint: Musculoskeletal Complaint Time Seen by Provider: 10:21 Travel History International Travel<30 days: No Contact w/Intl Traveler<30days: No Traveled to known affect area: No History of Present Illness HPI 71-year-old male here with nontraumatic left shoulder since 4 AM. Patient reports he was awoken in the middle of the night with left shoulder pain. He denies injury or trauma. He denies chest pain, shortness of breath, diaphoresis , nausea or vomiting. He reports he had a similar episode years ago in his right shoulder when he had frozen shoulder syndrome. He reports the pain is worse with movement of the shoulder. Symptom severity is moderate. Pain is alleviated with immobilization of the shoulder. PFSH Past Medical History Hx Anticoagulant Therapy: Yes (coumandin) Atrial Fibrillation: Yes (CORRECTED BY [facility]) Blood Disorders: No Heart Rhythm Problems: Yes (ATRIAL FIB) Cancer: Yes (skin cancer ) Cardiovascular Problems: Yes (htn on meds, a-fib) High Cholesterol: Yes Congestive Heart Failure: Yes Diabetes: Yes (type 2) Patient Takes Glucophage: Yes Diminished Hearing: No Endocrine: Yes Gastrointestinal Disorders: Yes (nausea) Genitourinary: Yes Hepatitis: No Hiatal Hernia: No Hypertension: Yes Immune Disorder: No Implanted Vascular Access Dvce: No Kidney Stones: Yes (1999) Musculoskeletal: Yes (arthritis and injury) Neurologic: Yes (ojeda palsy, pain l leg) Psychiatric: No Reproductive: No Respiratory: No Thyroid Disease: No Tetanus Vaccination: < 5 Years Influenza Vaccination: Yes Past Surgical History Abdominal Surgery: No AICD: No Cardiac Surgery: Yes (CARDIOVERSION) Ear Surgery: No Endocrine Surgery: No Eye Surgery: No Genitourinary Surgery: Yes (kidney stone) Gynecologic Surgery: No Joint Replacement: No Neurologic Surgery: No Oral Surgery: Yes (T&A) Pacemaker: No Thoracic Surgery: No Tonsillectomy: Yes (1954 AND ) Other Surgery: Yes Social History Alcohol Use: Yes (OCCAS. MIX DRINKS, BEER) Tobacco Use: No (QUIT 10/24/15) Substance Use: No Allergies-Medications (Allergen,Severity, Reaction): Coded Allergies: atropine (Unverified Allergy, Intermediate, 08/22/17) . Uncoded Allergies: ANTIHISTAMINES (Allergy, Intermediate, 08/22/17) . Reported Meds & Prescriptions Reported Meds & Active Scripts Active Reported Potassium Chloride ER (Potassium Chloride) 10 Meq Tab 10 Meq PO TID Cardizem CD 24 HR (Diltiazem CD 24 HR) 180 Mg Caper 180 Mg PO BID Metformin (Metformin HCl) 500 Mg Tab 500 Mg PO BIDPC Warfarin 6 Mg Tab 6 Mg PO DIRECTED RADHA Tanzeum 4-Pack Inj (Albiglutide) 30 Mg Pfpen 30 Mg SQ Q7D PT TAKES ON NIGHTS, PT WILL CALL DR SINCLAIR OFFICE TO VERIFY IF TO TAKE EVENING BEFORE SURGERY Tresiba Flextouch Pen Inj (Insulin Degludec Inj) 300 unit/3 ML Pen 80 Units SQ HS Warfarin 5 Mg Tab 10 Mg PO DIRECTED SUN,MON,WED,,THU,THU,SUN Losartan (Losartan Potassium) 100 Mg Tab 100 Mg PO DAILY Finasteride 5 Mg Tab 5 Mg PO DAILY Do not crush. Glimepiride 4 Mg Tab 4 Mg PO BIDAC Pravastatin 40 Mg Tab 40 Mg PO DAILY Amiodarone (Amiodarone HCl) 200 Mg Tab 200 Mg PO DAILY Review of Systems Except as stated in HPI: all other systems reviewed are Neg General / Constitutional: No: Fever HENT: No: Headaches Cardiovascular: No: Chest Pain or Discomfort Respiratory: No: Shortness of Breath Gastrointestinal: No: Abdominal Pain Physical Exam Narrative GENERAL: Alert male in no distress. Patient grimaces with movement of the left upper extremity. SKIN: Warm and dry. HEAD: Atraumatic. Normocephalic. EYES: Pupils equal and round. No scleral icterus. No injection or drainage. ENT: No nasal bleeding or discharge. Mucous membranes pink and moist. NECK: Trachea midline. No JVD. CARDIOVASCULAR: Regular rate and rhythm. No murmur or gallop. RESPIRATORY: No accessory muscle use. Clear to auscultation. Breath sounds equal bilaterally. GASTROINTESTINAL: Abdomen soft, non-tender, nondistended. Hepatic and splenic margins not palpable. MUSCULOSKELETAL: Extremities without clubbing, cyanosis, or edema. No obvious deformities. Patient has acute tenderness to palpation of the left shoulder and left trapezius muscle. He is holding the left upper extremity and slight flexion against the body. 2+ brachial and radial pulses. Normal sensation. Brisk cap refill. NEUROLOGICAL: Awake and alert. No obvious cranial nerve deficits. Motor grossly within normal limits. Five out of 5 muscle strength in the arms and legs. Normal speech. PSYCHIATRIC: Appropriate mood and affect; insight and judgment normal. Data Data Last Documented VS Vital Signs Date Time Temp Pulse Resp B/P (MAP) Pulse Ox O2 Delivery O2 Flow Rate FiO2 08/22/17 09:51 97.3 63 16 186/85 (118) 94 Orders Orders Ketorolac Inj (Toradol Inj) (08/22/17 10:30) Orphenadrine Inj (Norflex Inj) (08/22/17 10:30) Electrocardiogram (08/22/17 10:29) Basic Metabolic Panel (Bmp) (08/22/17 10:29) Complete Blood Count With Diff (08/22/17 10:29) Troponin I (08/22/17 10:29) Hydromorphone Pf Inj (Dilaudid Pf Inj) (08/22/17 11:45) ^ Sling (08/22/17 11:31) Labs Laboratory Tests Test 08/22/17 10:45 White Blood Count 15.6 TH/MM3 Red Blood Count 4.56 MIL/MM3 Hemoglobin 13.6 GM/DL Hematocrit 41.2 % Mean Corpuscular Volume 90.3 FL Mean Corpuscular Hemoglobin 29.8 PG Mean Corpuscular Hemoglobin Concent 33.0 % Red Cell Distribution Width 13.6 % Platelet Count 281 TH/MM3 Mean Platelet Volume 8.8 FL Neutrophils (%) (Auto) 81.2 % Lymphocytes (%) (Auto) 11.4 % Monocytes (%) (Auto) 6.0 % Eosinophils (%) (Auto) 0.9 % Basophils (%) (Auto) 0.5 % Neutrophils # (Auto) 12.7 TH/MM3 Lymphocytes # (Auto) 1.8 TH/MM3 Monocytes # (Auto) 0.9 TH/MM3 Eosinophils # (Auto) 0.1 TH/MM3 Basophils # (Auto) 0.1 TH/MM3 CBC Comment AUTO DIFF Differential Comment AUTO DIFF CONFIRMED Blood Urea Nitrogen 11 MG/DL Creatinine 0.79 MG/DL Random Glucose 109 MG/DL Calcium Level 8.1 MG/DL Sodium Level 140 MEQ/L Potassium Level 4.0 MEQ/L Chloride Level 107 MEQ/L Carbon Dioxide Level 23.4 MEQ/L Anion Gap 10 MEQ/L Estimat Glomerular Filtration Rate 97 ML/MIN Troponin I LESS THAN 0.02 NG/ML MDM Medical Decision Making Medical Screen Exam Complete: Yes Emergency Medical Condition: Yes Differential Diagnosis Shoulder pain: Bursitis, arthritis, trapezius muscle spasm, rotator cuff injury , ACS Narrative Course 71-year-old male with nontraumatic left shoulder pain since 4 AM. He denies injury or trauma. Patient has acute tenderness with palpation of the shoulder and range of motion of the left upper 70. There is no deformity to the shoulder. I do not suspect dislocation or fracture. Patient denies chest pain , shortness breath, diaphoresis, nausea. He does have multiple cardiac risk factors. For that reason EKG and troponin were obtained. EKG showed sinus rhythm with no ST elevation or depression. Troponin was less than 0.02. This does not appear to be cardiac in nature. The pain is clearly reproducible to palpation and range of motion. He reports similar symptoms years ago in the right shoulder when he experienced an episode of frozen shoulder syndrome. Patient was given IM Toradol and Norflex with little relief. According to his EMR his visits here have required multiple doses of Dilaudid to treat his pain primarily sciatica. Patient was then given a shot of Dilaudid and had symptom improvement. He was put into a arm sling for comfort. He will be discharged home and instructed to follow with his primary doctor. Should he develop new or worsening symptoms he is to return he agrees to this plan Diagnosis Primary Impression: Left shoulder pain Qualified Codes: M25.512 - Pain in left shoulder Referrals: Primary Care Physician Additional Instructions: Take [id number] Motrin 608 100 mg every 6-8 hours as needed for pain. Take his medications with food. Take the medication as prescribed. Follow-up with her primary doctor. Return if he developed new or worsening symptoms. Scripts Methocarbamol (Robaxin) 750 Mg Tab 750 MG PO QID for Muscle Spasm, #15 TAB 0 Refills Prov: Lora Dtuta 08/22/17 Disposition: 01 DISCHARGE HOME Condition: Stable Lora Dutta Aug 22, 2017 11:40
[2017-08-22] MEDS ORDERED: HYDROmorphone HCL PF 1 MG/ML VIAL IM ONE (11:45)
[2017-08-22] MEDS ORDERED: ROBA750T PO (12:09)
[2017-08-22 12:19] VITALS: BP 146/78
--- NOTE | 2017-08-23 12:18 | EKG ---
Date Performed: 08/22/2017 Time Performed: 10:12:11 PTAGE: 71 years EKG: Sinus rhythm NORMAL ECG PREVIOUS TRACING : 05/25/2017 13.00 Compared to prior tracing no significant change DOCTOR: Get Stanford Interpretating Date/Time 08/23/2017 12:17:54
== END 2017-08-22 12:26 | disposition home or self-care (01) ==
LOC: PHEFT 09:24
DX: M25.512 Pain in left shoulder (principal); E11.9 Type 2 diabetes mellitus without complications; I10 Essential (primary) hypertension; I48.91 Unspecified atrial fibrillation; E78.00 Pure hypercholesterolemia, unspecified; Z79.4 Long term (current) use of insulin; Z79.01 Long term (current) use of anticoagulants; Z87.19 Personal history of other diseases of the digestive system; Z87.448 Personal history of other diseases of urinary system; Z87.39 Personal history of other diseases of the musculoskeletal system and connective tissue; Z86.69 Personal history of other diseases of the nervous system and sense organs; Z85.828 Personal history of other malignant neoplasm of skin; Z72.89 Other problems related to lifestyle
CPT/HCPCS: 80048; 84484; 85025; 93005; 96372; 99284; J1170; J1885; J2360